=== PATIENT | female | born 2000 | race Hispanic/Latino ===

== ENCOUNTER 2024-09-30 14:35 | Emergency (ER) | payer OTHER, SELFPAY ==
[2024-09-30 14:42] VITALS: BP 139/84; PULSE 108; RESP 18; TEMP 37.1; O2SAT 99; BMI 39.4
--- NOTE | 2024-09-30 14:45 | DI.RAD.S_ITS ---
PROCEDURE: XR KNEE RT 3V INDICATIONS: possible dislocation TECHNIQUE: 3 views of the knee were acquired. COMPARISON: None. FINDINGS: Bones: No fractures or dislocations. No suspicious bony lesions. Soft tissues: Small joint effusion. No suspicious soft tissue calcifications. IMPRESSION: No acute osseous abnormality. If pain persists with conservative management, consider repeat x-ray in 10-14 days or cross-sectional imaging. Dictated by: Baldev Reed M.D. on 09/30/2024 at 16:31 Approved by: Baldev Reed M.D. on 09/30/2024 at 16:32
[2024-09-30] MEDS: ACETAMINOPHEN 325 MG TABLET 650 MG PO (17:34)
--- NOTE | 2024-09-30 18:24 | ED.LOWEXIN ---
HPI - Extremity Injury (Lower) General Chief Complaint: Extremity Injury, Lower Stated Complaint: Possible dislocated right knee Time Seen by Provider: 09/30/24 18:10 Source: patient Mode of arrival: Wheelchair History of Present Illness HPI Narrative: Pleasant 24-year-old woman comes to the ER with acute right-sided knee pain which she states her patella dislocated laterally when getting out of the car today. She reports a history of this happening repeatedly since childhood. She states that this has been diagnosed by a physician in the past but no specific treatment is ever been offered. She also reports an incident when she was 8 years old when the patella was dislocated and subsequently her tibia fracture. She states that she was just playing in the garden when this happened and there was no significant mechanism of injury. She denies any numbness tingling weakness/paralysis or any other concerns complaints or pain at this time. Related Data Previous Rx's ?Medication ?Instructions ?Recorded ibuprofen 800 mg tablet 800 mg PO Q8H PRN pain #30 tabs 09/30/24 Allergies Allergy/AdvReac Type Severity Reaction Status Date / Time No Known Allergies Allergy Verified 09/30/24 14:45 Patient History Social History Smoking Status: Never smoker Smoking Status: Never smoker Exam Initial Vital Signs Initial Vital Signs: Vital Signs Temperature 98.7 F 09/30/24 14:42 Pulse Rate 108 H 09/30/24 14:42 Respiratory Rate 18 09/30/24 14:42 Blood Pressure 139/84 09/30/24 14:42 Pulse Oximetry 99 09/30/24 14:42 Oxygen Delivery Method Room Air 09/30/24 14:42 Const General: No acute distress, No in distress and No ill appearing [facility] Head: normocephalic and atraumatic Eyes General: Yes appearance normal, both eyes and all related structures Pupils: PERRL Neck Neck: No tender Neuro General: patient alert, patient awake, patient oriented x3, tone normal, moves all extremities, normal light touch, pain and propioception, no focal motor deficits and CN's II-XI intact bilaterally Extrem General: normal to inspection, no pedal edema and no calf tenderness Right lower extremity: normal to inspection (Pain with weight-bearing), full ROM (Can not achieve full extension voluntarily), normal capillary refill and no joint enlargement; no cyanosis and no edema Course Course Course Narrative: Patient seen and examined by myself when I arrived in the ER. She had already received pain medication from nursing and she felt her pain was much better. Her x-ray was negative and on prior to my arrival. Therefore, for the safety of the patient I had a immobilizing the splint put on the affected knee and the patient was given crutches and crutch training. Referral was put into Orthopedic surgery and the patient was advised to call them in the morning to set up an appointment. In the meantime, I advised her to return to the ER with the return instructions outlined in the discharge paperwork. Orders Ordered: ED Orders 09/30/24 14:45 XR knee RT 3V Stat 09/30/24 18:23 Consult to [facility] Stat Discontinued Medications Acetaminophen (Acetaminophen 325 Mg Tablet) 650 mg PO NOW ONE Stop: 09/30/24 17:31 Last Admin: 09/30/24 17:34 Dose: 650 mg Documented By: VAL Vital Signs Vital signs: Vital Signs - 8 hr 09/30/24 14:42 Temperature 98.7 F Pulse Rate 108 H Respiratory Rate 18 Blood Pressure 139/84 Pulse Oximetry 99 Oxygen Delivery Method Room Air Discharge Plan Departure Patient Disposition: Home Clinical Impression: Acute knee pain Qualifiers: Laterality: right Qualified Code(s): M25.561 - Pain in right knee Instructions: DI for Knee Pain Activity Restrictions/Additional Instructions: If there is any change or worsening in your condition such as out of control or worsening pain or numbness tingling or weakness/paralysis of any part of your body then please call 911 or return to the ER right away. Otherwise, I have put in a referral for you for orthopedic surgery so you should call their office as soon as possible to set up an appointment. Prescriptions: New ibuprofen 800 mg tablet 800 mg PO Q8H PRN (Reason: pain) Qty: 30 0RF Referrals: [facility] [Provider Group, Orthopedic Surgery] - As soon as possible Referral Note: Pt states repeated knee dislocations. Put on crutches and immobilizer in ED Stand Alone Forms: Patient Portal/API
[2024-09-30 19:00] VITALS: BP 117/71; PULSE 87; RESP 14; O2SAT 100
== END 2024-09-30 19:04 | disposition home or self-care (01) ==
PROVIDERS: Emergency Provider Emergency Medicine
DX: M25.561 Pain in right knee (principal)
CPT/HCPCS: 29505; 29530; 73562; 99283

== ENCOUNTER → 2024-11-23 08:11 | Outpatient (CLI) | payer OTHER, SELFPAY ==
--- NOTE | 2024-11-23 08:12 | DI.MRI.S_ITS ---
PROCEDURE: MR KNEE RT WO CON INDICATIONS: Meniscal injury, patellar dislocaton TECHNIQUE: Noncontrast sagittal PD fast spin echo and T2 fast spin echo with fat saturation, sagittal 3-D FLASH with fat saturation; coronal T1 spin echo and PD fast spin echo with fat saturation, and axial PD fast spin echo with fat saturation through the knee. COMPARISON: [facility], CR, ORTHO-XR KNEE WB RIGHT, 10/01/2024, 10:24. FINDINGS: Image quality: Excellent. Menisci: Complex tear of lateral meniscus body and posterior horn with full- thickness radial component. Medial meniscus is intact. Cruciate ligaments: The anterior and posterior cruciate ligaments appear intact. Collateral ligaments: Medial collateral ligament and lateral collateral ligament complex are unremarkable. Anterior structures: The quadriceps and patellar tendons appear intact. Bones and cartilage: No bone marrow contusions or fractures. Blistering of the cartilage in the central patella and lateral patellar facet with shallow fibrillation. Greater than 50% thickness cartilage thinning of the nonweightbearing lateral femoral condyle. Joint space: Small knee effusion. Ruptured popliteal cyst. IMPRESSION: Complex tear of lateral meniscus. Cartilage defects in the patellofemoral and lateral patellofemoral compartments. Dictated by: Estuardo Dolan M.D. on 11/23/2024 at 11:23 Approved by: Estuardo Dolan M.D. on 11/23/2024 at 11:34
== END ==
LOC: MRI 08:12
PROVIDERS: Referring Provider Physician Assistant Surgical; Visit Provider Physician Assistant Surgical
DX: S83.281A Other tear of lateral meniscus, current injury, right knee, initial encounter (principal); M25.361 Other instability, right knee; M25.461 Effusion, right knee; M66.0 Rupture of popliteal cyst
CPT/HCPCS: 73721

== ENCOUNTER 2024-12-29 12:23 | Day surgery (SDC) | payer OTHER, SELFPAY ==
[2024-12-22 09:35] VITALS: BMI 39.4
--- NOTE | 2024-12-29 14:09 | P.OP_ITS ---
Operative Date/Time/Diagnoses Date of procedure: 12/29/24 Time of procedure: 14:09 Pre-op diagnosis: right knee patellar instability Post-op diagnosis: same Procedure & Clinicians Procedure: right knee MPFL reconstruction and lateral tibial plateau chondroplasty Same procedure(s) as scheduled: Yes Surgeon: Ronald Addison Assisted?: Yes Hotel Sales Manager: Yolanda Macias Anesthesia Type: General Operative Notes Findings: patellar lateral instability and chondromalacia of the lateral tibial plateau of the right knee Closure Type: primary Specimen(s): none sent Applied: none Estimated Blood Loss (mL): 20 Blood products transfused: none Tourniquet time (min): 95 Procedure in detail: Date of Operation: 12/29/24 Preoperative diagnosis: RIGHT Knee Patellar Instability Procedure performed: RIGHT Knee MPFL Reconstruction with Allograft, and lateral tibial plateau chondroplasty Postoperative diagnosis: RIGHT Knee Patellar Instability and lateral tibial plateau grade 2 chondromalacia Primary Surgeon: Ronald Addison MD Secondary Surgeon: Yolanda Macias DO and SARAH Gloria Physician Hotel Sales Manager was used throughout the entirety of the case. They assisted with room set up, patient positioning, draping, retraction, reduction, fixation and closure. They were essential for the success of the case. Anesthesia: General EBL: 20 ml Tourniquet: 95 minutes @ 250 mmHg Implants: Arthrex MPFL Implant System with FastThread Screw and BioComposite Swivel Lock Anchors, 3.9x17.9 and 6x20mm Gracillis Allograft Indication For Surgery: Patient presents to the orthopedic clinic with chronic patellar instability. They have failed non-operative treatment and want to move forward with operative management. The risks, benefits, and alternatives were discussed. Risks include pain, bleeding, infection, damage to nearby structures and cartilage, lack of symptom relief, need for further surgery, DVT, PE, stroke, and . Written consent was obtained. Examination Under Anesthesia: ROM equal to the contralateral side. Normal Joseph & pivot shift Stable to varus and valgus stressing at 0 & 30 degrees. Stable dial at 30 & 90 degrees. No mechanical sensations no endpoint with lateral subluxation of the patella Diagnostic Arthroscopy: Loose bodies: none Synovium: normal Patella cartilage: minimal grade 1 chondromalacia Trochlear cartilage: intact Medial femoral condyle cartilage: intact Medial tibial plateau cartilage: intact Medial meniscus: no root tear noted. No meniscal tear. ACL: Intact PCL: intact Lateral femoral condyle cartilage: intact Lateral tibial plateau cartilage: grade 1 and 2 chondromalacia of the lateral tibial plateau Lateral meniscus: intact, no tears noted Procedure in Detail: The patient was met in the pre-operative hold area. Consent was verified and operative extremity was signed. The patient then met with anesthesia and was brought back to the operating room. The patient was placed supine on the operating table. A general anesthetic and IV antibiotics were administered. A well-padded tourniquet was placed on the thigh. The lower extremity was then prepped and draped in the usual sterile fashion. A timeout was performed per protocol. All were in agreement and we proceeded. The Esmarch was used to exsanguinate the limb and the tourniquet was elevated. An 11 blade scalpel was used to make an anterolateral arthroscopic portal. The arthroscope was introduced into the knee and the anteromedial portal was created under direct visualization using needle localization. A diagnostic arthroscopy was performed with the above-stated findings. I then proceeded to Debride the lateral tibial plateau Chondromalacia with a sucker shaver. there were no further unstable cartilage fragments. I then turned my attention to the MPFL reconstruction. We made a longitudinal incision along the length of the medial patella at level of the superior half of the patella. We sharply dissected down to bone and exposed the anterior and posterior portions of the medial border of the patella. The bone was prepared utilizing a curette and rasp. This created a bleeding bed for healing. The short 2.4 mm guidewire was placed in the superior pole of the patella and the position was confirmed both in an AP and lateral fluoroscopy image. We then used the parallel guide and drilled the 2nd long 2.4 mm guidewire again to the laser line. The position of both of these guidewires were confirmed with AP and lateral fluoroscopy. These guidewires were then over drilled with a 4.0 mm cannulated drill down to the laser line. The gracilis graft was then threaded into the 3.9 mm SwiveLock and placed into the 2 holes placed on the medial aspect of the patella. the superior pole implant appeared loose and this was removed. It was replaced with a 4.75 x 19.1 mm SwiveLock. This had solid fixation. These were then inspected and we are easily able to pull with good tension and we had good fixation into the patella. We then bluntly dissected down anterior to the VMO and capsule to the approximate area that we will be placing our femoral screw. Using the Arthrex guide we are able to find [place]ott[place] point with a perfect lateral of the knee. The 2.4 mm guide pin was then screwed in aiming slightly anterior and superior. It was pushed through the far cortex and out the skin. We then use the 7.0 mm low profile Reamer and reamed to the far cortex under fluoroscopy. We then used a passing suture to pass our graft from the patellar incision through the femoral incision. The sutures around the gracilis graft was then passed with the 2.4 mm guidewire out the lateral cortex. Then holding appropriate tension with a right angle on the graft we then pulled on our lateral sutures which then dunked our graft into our 7.0 mm socket. the knee was placed in 30? of flexion and we checked our tension of the MPFL reconstruction. The graft was then fixed in place with a BioComposite fast thread interference screw. We then checked for patellar mobility throughout range of motion. And the patellofemoral joint was inspected through arthroscopy. We then utilized the sutures that remained from the swivel locks and use that to over-sew for a stronger medial fixation. All incisions were then irrigated with sterile normal saline. The wounds were then closed in layers with 2-0 Vicryl and 3-0 nylon. The portals were closed with 3-0 nylon. Local anesthetic was placed. A sterile dressing was applied. They were then placed in a knee [id number] brace locked in extension .The patient was awakened and transferred to the recovery room in stable condition. Postoperative Plan: Same day discharge Nonweightbearing for 2 weeks Range of Motion brace locked in extension for 2 weeks ASA for DVT prophylaxis for 4 weeks Remove dressing in [address] bandaids Physical therapy to start after surgery Do not submerge wound until 4 weeks Follow up at 2 weeks for suture removal. Ronald Addison MD Complications: none Post-operative Condition: stable Disposition: PACU
--- NOTE | 2024-12-29 14:09 | PM.PREOP ---
Pre-operative Note Interval Note History & Physical reviewed/Exam performed by Physician: Yes Changes to H&P: No
[2024-12-29 14:19] VITALS: BP 119/72; PULSE 68; RESP 14; TEMP 36.2; O2SAT 100
[2024-12-29] MEDS: LACTATED RINGERS 1,000 ML 42 ML IV (14:25)
--- NOTE | 2024-12-29 15:28 | SUR.OPER ---
Supine on padded OR bed, head on pillow, arms secured on padded arm boards at <90 degrees abduction, legs uncrossed, safety belt at abdomen, tape over blanket over left lower leg. Lateral knee positioning post secured to bed at thigh
[2024-12-29 17:04] VITALS: BP 116/57; PULSE 104; RESP 16; TEMP 36.2; O2SAT 100
[2024-12-29 17:10] VITALS: BP 112/57; PULSE 106; RESP 18; TEMP 36.1; O2SAT 100
[2024-12-29 17:20] VITALS: BP 119/61; PULSE 101; RESP 18; TEMP 36.2; O2SAT 100
== END 2024-12-29 18:00 | disposition home or self-care (01) ==
PROVIDERS: Referring Provider Orthopaedic Surgery; Visit Provider Orthopaedic Surgery
PROC: (CPT 29888; principal; 2024-12-29 13:45)
DX: M23.51 Chronic instability of knee, right knee (principal); M94.261 Chondromalacia, right knee
CPT/HCPCS: 27422; 29877; 76000; 81025; C1713; J0689; J1100; J1171; J2250; J2405; J2704; J3010; J7120

== ENCOUNTER 2025-01-05 00:45 | Emergency (ER) | payer OTHER, SELFPAY ==
[2025-01-05 01:03] VITALS: BP 133/71; PULSE 115; RESP 18; O2SAT 98; BMI 39.4
--- NOTE | 2025-01-05 02:10 | ED_ITS ---
HPI - Abdominal Pain General Chief Complaint: Abdominal Pain Stated Complaint: Constipation, Abdominal Pain Time Seen by Provider: 01/05/25 00:51 Source: patient and family Mode of arrival: Wheelchair History of Present Illness HPI narrative: 24-year-old female status post right knee patellar tendon surgery 2 weeks ago, has been taking postoperative oxycodone, having abdominal cramping and scant stool, feels like she can not have a bowel movement, concerned about constipation. She has tried docusate doses with her opiate pain medications. No other treatments tried. No fevers or chills. No nausea or vomiting. No history of prior bowel obstructions. Related Data Home Medications ?Medication ?Instructions ?Recorded ?Confirmed semaglutide (weight loss) 1 mg/0.5 mg SUBCUT 12/29/24 mL subcutaneous pen injector (Wegovy) Previous Rx's ?Medication ?Instructions ?Recorded ibuprofen 800 mg tablet 800 mg PO Q8H PRN pain #30 t abs 09/30/24 meloxicam 15 mg tablet 15 mg PO DAILY #45 tabs 09/14 11/08 acetaminophen 500 mg tablet 1,000 mg (2 x 500 mg) PO Q 8H PRN 12/08/24 pain #120 tabs docusate sodium 100 mg capsule 100 mg PO BID #20 caps 12/08/24 (Colace) ondansetron 4 mg disintegrating 4 mg PO Q8H PRN nausea and 12/08/24 tablet vomiting #14 tabs oxycodone 5 mg capsule 5 mg PO Q4H PRN pain #25 cap s 12/08/24 Allergies Allergy/AdvReac Type Severity Reaction Status Date / Time No Known Allergies Allergy Verified 01/05/25 01:04 Patient History Medical History (Updated 01/05/25 @ 03:36 by Ramírez Garvey MD) Patellar dislocation Exam Narrative Exam Narrative: GENERAL: Well-developed patient, in mild distress. HEAD: Atraumatic. Normocephalic. EYES: Pupils equal round and reactive. Extraocular motions intact. No scleral icterus. No injection or drainage. ENT: Nose without bleeding, purulent drainage. Throat without erythema, tonsillar hypertrophy or exudate. Airway patent. NECK: Trachea midline. Non tender CARDIOVASCULAR: Regular rate and rhythm without murmurs, gallops, or rubs. RESPIRATORY: Clear to auscultation. Breath sounds equal bilaterally. No wheezes, rales, or rhonchi. GASTROINTESTINAL: Abdomen soft, non-tender, nondistended. EXTREMITIES: Right lower extremity in full extension postoperative knee brace, sutures appear intact without gross swelling or redness. BACK: Nontender without deformity or crepitance. No flank tenderness. NEURO: AOx3. Motor functions grossly nonfocal. SKIN: No rash or erythema of visible areas Initial Vital Signs Initial Vital Signs: Vital Signs Pulse Rate 115 H 01/05/25 01:03 Respiratory Rate 18 01/05/25 01:03 Blood Pressure 133/71 01/05/25 01:03 Pulse Oximetry 98 01/05/25 01:03 Oxygen Delivery Method Room Air 01/05/25 01:03 Course Orders Ordered: ED Orders 01/05/25 02:35 XR abdomen 1V Stat Discontinued Medications Lorazepam (Lorazepam 0.5 Mg Tablet) 0.5 mg PO NOW ONE Stop: 01/05/25 03:44 Last Admin: 01/05/25 03:48 Dose: 0.5 mg Documented By: LESLIE Magnesium Citrate (Magnesium Citrate 300 Ml Solution) 150 ml PO NOW ONE Stop: 01/05/25 03:13 Last Admin: 01/05/25 03:37 Dose: 150 ml Documented By: LESLIE Sodium Biphosphate/Sodium Phosphate (Fleets Enema) 1 each [facility] NOW ONE Stop: 01/05/25 03:13 Last Admin: 01/05/25 03:38 Dose: 1 each Documented By: LESLIE Vital Signs Vital signs: Vital Signs - 8 hr 01/05/25 01:03 01/05/25 04:24 Pulse Rate 115 H 126 H Respiratory Rate 18 19 Blood Pressure 133/71 118/59 L Pulse Oximetry 98 94 Oxygen Delivery Method Room Air Room Air MDM - Abdominal Pain Imaging Data Abdominal x-ray: Attestation: I personally reviewed and interpreted this imaging study as follows: My Impression: Right-sided colonic stool without obstructive pattern, no obvious free air. Radiologist's Impression: Impression teleradiology report: ?No high-grade bowel obstruction. Prominent stool at right colon and within rectal vault. [facility] Narrative Medical decision making narrative: 24-year-old female has concern about constipation. Recent orthopedic surgery, patellar tendon repair, taking postoperative oxycodone, Colace regimen not helping. Abdominal cramping, feels like she needs to defecate but unable to do so. Afebrile, sirs screen negative, no significant anterior abdominal tenderness, no anterior abdominal mass. Screening single view x-ray, did show significant stool burden right-sided and also rectal vault. Enema given in the emergency department. Oral magnesium citrate 1/2 bottle (150 cc) given, dispensed remainder of bottle to use if needed. Follow up with Orthopedic surgery as planned for post patellar surgery re-evaluation. Recheck abdominal exam/symptoms if symptoms not improving today or tomorrow. Return precautions discussed. Discharged home. Discharge Plan Departure Patient Disposition: Home Clinical Impression: Constipation Instructions: DI for Constipation Activity Restrictions/Additional Instructions: Recent right knee surgery, postoperative pain control with oxycodone, leading to suspected constipation, unable to have normal bowel movements, painful attempts at having any bowel movement. No fever on triage. Screening single-view x-ray shows significant stool burden, but no bowel obstruction like changes. Enema in the emergency department initiated. First dose of oral magnesium citrate liquid laxative given, half of a 300 cc bottle 150 cc. If no response in next 3-4 hours at home, consider an additional 1/4 of the bottle or 75 cc. If still no response in the next 3-4 hours at home, consider taking the remaining 1/4 of the bottle or 75 cc remaining. Drink plenty of fluids to stay hydrated, as this medication can induce diarrhea and lead to dehydration. Follow up with your orthopedic surgeon as planned for your postoperative knee concerns, visible wound looks good, continue splint and orthopedic care instructions postoperatively as planned. Return to this/nearest emergency department for any change worsening symptoms or any concerns prior. Prescriptions: No Action ibuprofen 800 mg tablet 800 mg PO Q8H PRN (Reason: pain) Qty: 30 0RF Wegovy 1 mg/0.5 mL pen injector SUBCUT Patient Comments: [NO ORIGINAL SIG] meloxicam 15 mg tablet 15 mg PO DAILY Qty: 45 0RF acetaminophen 500 mg tablet 1,000 mg PO Q8H PRN (Reason: pain) Qty: 120 0RF oxycodone 5 mg capsule 5 mg PO Q4H PRN (Reason: pain) Qty: 25 0RF docusate sodium [Colace] 100 mg capsule 100 mg PO BID Qty: 20 0RF ondansetron 4 mg tablet,disintegrating 4 mg PO Q8H PRN (Reason: nausea and vomiting) Qty: 14 0RF Stand Alone Forms: Patient Portal/API
--- NOTE | 2025-01-05 02:35 | DI.RAD.S_ITS ---
PROCEDURE: XR ABDOMEN 1V INDICATIONS: recent opiates for knee surgery, constipation sx TECHNIQUE: One view of the abdomen acquired. COMPARISON: None. FINDINGS: Surgical changes and devices: None. Bowel: Bowel gas pattern is normal. Moderate volume of stool noted. Soft tissues: No suspicious abdominal calcifications. Visualized solid organ contours appear normal in size. Bones: No suspicious bony lesions. IMPRESSION: No acute abnormality. Dictated by: Veronica Gonzalez M.D. on 01/05/2025 at 7:59 Approved by: Veronica Gonzalez M.D. on 01/05/2025 at 8:00
[2025-01-05] MEDS: MAGNESIUM CITRATE 300 ML SOLUTION 150 ML PO (03:37)
[2025-01-05] MEDS: FLEETS ENEMA 1 EACH PR (03:38)
[2025-01-05 04:24] VITALS: BP 118/59; PULSE 126; RESP 19; O2SAT 94
== END 2025-01-05 04:25 | disposition home or self-care (01) ==
PROVIDERS: Emergency Provider Emergency Medicine
DX: K59.00 Constipation, unspecified (principal); R10.9 Unspecified abdominal pain
CPT/HCPCS: 74018; 99283